=== PATIENT | male | born 1970 | race Caucasian/White ===

== ENCOUNTER 2018-01-04 09:21 | Outpatient (CLI) | payer BC, OTHER ==
[2018-01-04] MEDS ORDERED: Gadobenate Dimeglumine 529 MG/1 ML (20ML VIAL) ONE (11:21)
--- NOTE | 2018-01-04 16:38 | MRI ---
BRAIN MRI WITH AND WITHOUT CONTRAST: 01/04/18 CLINICAL HISTORY: Epilepsy, unspecified, not intractable. No prior imaging comparison. TECHNIQUE: Pre and postcontrast MR imaging of brain performed. FINDINGS: There is a prominent sized region of signal alteration of the left cerebral hemisphere involving the frontal and temporal lobes predominantly cortical/subcortical in distribution. There is associated fuentes sceptibility artifact at the cortex of the anterior pole left temporal lobe. There is no evidence of an acute infarction, No pathologic intra-axial enhancement. There is a mild degree of intrinsic T1 si gnal of the cortex of the left cerebral hemisphere that may relate to component of cortical laminar n ecrosis. Arachnoid cyst is seen at the midline of posterior cranial fossa. There is evidence of prior craniotomy at the right parietal region with associated susceptibility artifact. No midline shift. T here is mild prominence of the ventricular system. Added CSF signal overlying the anterior to mid lef t temporal lobe is present. IMPRESSION: Chronic appearing signal alteration of the left cerebral hemisphere with associated volume loss, susc eptibility artifact and extra-axial CSF density. There is ex vacuo dilatation of ventricular system. Right side craniotomy with associated susceptibility artifact is present. Correlate with surgical his tory. No acute territorial infarction or midline shift. POS: [place]
== END 2018-01-04 09:22 | disposition home or self-care (01) ==
LOC: EEG 09:21
PROVIDERS: ATTEND Psychiatry & Neurology Neurology
DX: G40.909 Epilepsy, unspecified, not intractable, without status epilepticus (principal); Z98.890 Other specified postprocedural states; G93.89 Other specified disorders of brain
CPT/HCPCS: 70553; 95816; A9579

== ENCOUNTER 2024-01-26 09:40 | Outpatient (CLI) | payer OTHER ==
[2024-01-26] MEDS ORDERED: Iopamidol 370 76% 100 ML VIAL ONE (12:04)
== END 2024-01-26 09:41 | disposition home or self-care (01) ==
LOC: CT 09:40
PROVIDERS: ATTEND Internal Medicine Hematology & Oncology
DX: C25.2 Malignant neoplasm of tail of pancreas (principal); C78.7 Secondary malignant neoplasm of liver and intrahepatic bile duct; R91.8 Other nonspecific abnormal finding of lung field; C79.51 Secondary malignant neoplasm of bone; C77.2 Secondary and unspecified malignant neoplasm of intra-abdominal lymph nodes
CPT/HCPCS: 71260; 74177

== ENCOUNTER 2024-04-07 08:22 | Outpatient (CLI) | payer OTHER ==
[2024-04-07] MEDS ORDERED: Iopamidol 370 76% 100 ML VIAL ONE (10:35)
== END 2024-04-07 08:23 | disposition home or self-care (01) ==
LOC: BICCT 08:22
PROVIDERS: ATTEND Internal Medicine Hematology & Oncology
DX: C25.2 Malignant neoplasm of tail of pancreas (principal); C78.7 Secondary malignant neoplasm of liver and intrahepatic bile duct; R91.8 Other nonspecific abnormal finding of lung field; J98.4 Other disorders of lung; K76.9 Liver disease, unspecified; D73.89 Other diseases of spleen; K86.89 Other specified diseases of pancreas; G95.89 Other specified diseases of spinal cord
CPT/HCPCS: 71260; 74177; Q9967

== ENCOUNTER 2024-04-20 12:31 | Outpatient (CLI) | payer OTHER | END 2024-04-20 12:32 | disposition home or self-care (01) | LOC: SCSMRI 12:31 | PROVIDERS: ATTEND Internal Medicine Hematology & Oncology | DX: M54.2 Cervicalgia (principal); M89.8X1 Other specified disorders of bone, shoulder; C25.2 Malignant neoplasm of tail of pancreas; C78.7 Secondary malignant neoplasm of liver and intrahepatic bile duct; M47.814 Spondylosis without myelopathy or radiculopathy, thoracic region; M47.812 Spondylosis without myelopathy or radiculopathy, cervical region | CPT/HCPCS: 72156; 72157 ==

== ENCOUNTER 2024-05-23 11:49 | Day surgery (SDC) | payer OTHER ==
[~2024-05-23 11:49] MED LIST: diphenhydrAMINE 25 MG CAP PO SCH
[2024-05-23] MEDS ORDERED: Acetaminophen 500 MG TAB ONE (13:05)
[2024-05-23] MEDS: Acetaminophen 500 MG TAB PO SCH (13:06)
[2024-05-23 16:03] VITALS: BP 99/60; TEMP 97.5
== END 2024-05-23 16:23 | disposition home or self-care (01) ==
LOC: ONC/OP 11:49
PROVIDERS: ATTEND Internal Medicine Hematology & Oncology
DX: D64.9 Anemia, unspecified (principal); D69.6 Thrombocytopenia, unspecified
CPT/HCPCS: 36430; 86850; 86900; 86901; P9016

== ENCOUNTER 2024-06-01 22:19 | Inpatient (IN) | payer OTHER ==
[~2024-06-01 22:19] MED LIST changes: +Iopamidol-370 76% 500 ML MDV (1 ML CHARGE) ONE; -diphenhydrAMINE 25 MG CAP PO SCH
[2024-06-01] MEDS ORDERED: HYDROmorphone 0.5 MG/0.5 ML SYRINGE ONE (23:10)
[2024-06-01] MEDS ORDERED: Ondansetron PF 4 MG/2 ML Vial ONE (23:10)
[2024-06-01 23:29] LABS: ALT (SGPT) 27 U/L (8-55); AST (SGOT) 30 U/L (5-34); Albumin 2.6 g/dL (3.5-5.0); Alkaline Phosphatase 562 U/L (40-110); Anion Gap 15 mmol/L (10-20); BUN (Urea Nitrogen) 8 mg/dL (8.4-25.7); Bilirubin, Total 1.2 mg/dL (0.2-1.2); Calc. Creatinine Clearance 0 mL/min (70-130); Calcium 8.3 mg/dL (7.8-10.44); Carbon Dioxide 25 mmol/L (22-29); Chloride 103 mmol/L (98-107); Estimated GFR 119; Globulin 3.7 g/dL (2.4-3.5); Glucose 131 mg/dL (70-105); Lipase 12 U/L (8-78); Magnesium 1.9 mg/dL (1.6-2.6); Potassium 3.5 mmol/L (3.5-5.1); Protein, Total 6.3 g/dL (6.0-8.3); Sodium 139 mmol/L (136-145)
[2024-06-01 23:45] LABS: Anisocytosis SLIGHT = 6-15 cells HPF (0-5); Band 17 % (5-11); Elliptocytes SLIGHT = 2-5 cells HPF (0-1); Hypochromia SLIGHT = 6-15 cells HPF (0-5); Lymphocytes 2 % (21-51); Macrocytosis SLIGHT = 6-15 cells HPF (0-5); Monocytes 1 % (0-10); Neutrophil 79 % (42-75); Platelet Adequacy Comment Platelets Decreased; Polychromasia MODERATE = 3-4 cells HPF (0-2); Reactive Lymphocytes 1 % (0-10)
[2024-06-01 23:48] LABS: Hematocrit 23.4 % (42.0-52.0); Hemoglobin 7.6 g/dL (14.0-18.0); Mean Corpuscular HGB CONC 32.5 g/dL (32.0-36.0); Mean Corpuscular Volume 101.7 fL (78.0-98.0); Mean Platelet Volume 12.3 fL (7.4-10.4); Platelet Count 51 10x3/uL (130-400); RBC Distribution Width 21.8 % (11.5-14.5)
[2024-06-02] MEDS ORDERED: Piperacillin/Tazobactam 4.5 GM VIAL ONE (00:28)
[2024-06-02] MEDS ORDERED: Sodium Chloride 0.9% 100 ML ONE (00:28)
[2024-06-02] MEDS ORDERED: HYDROmorphone 0.5 MG/0.5 ML SYRINGE ONE (00:35)
[2024-06-02] MEDS ORDERED: Ondansetron PF 4 MG/2 ML Vial ONE (00:59)
[2024-06-02] MEDS ORDERED: Famotidine/PF 20 mg/2ml Vial ONE (01:56)
[2024-06-02] MEDS ORDERED: Acetaminophen 325 MG TAB PO PRN (02:52)
[2024-06-02] MEDS ORDERED: Senokot S 8.6-50 MG TAB PO PRN (02:52)
[2024-06-02 03:14] VITALS: BMI 28.3
[2024-06-02] MEDS: levETIRAcetam 500 MG (5 mL) VIAL SLOW IVP SCH ×2 (03:24→09:32)
[2024-06-02] MEDS: traMADol HCl 50 MG TAB PO PRN (03:25)
[2024-06-02] MEDS: Sodium Chloride 0.9% 1,000 ML IV SCH (03:30)
[2024-06-02] MEDS: Vancomycin (BATCH) 2 GM in Premix 1 BAG IVPB ONE (03:31)
[2024-06-02] MEDS: Cefepime 2 GM in Sodium Chloride 0.9% 100 ML IVPB SCH (04:41)
[2024-06-02 05:59] LABS: Vancomycin, Random 21.5 ug/mL (See Comment)
[2024-06-02 06:08] LABS: Hematocrit 22.1 % (42.0-52.0); Hemoglobin 6.9 g/dL (14.0-18.0); Mean Corpuscular HGB CONC 31.2 g/dL (32.0-36.0); Mean Corpuscular Hemoglobin 32.4 pg (27.0-31.0); Mean Corpuscular Volume 103.8 fL (78.0-98.0); Mean Platelet Volume 11.8 fL (7.4-10.4); Platelet Count 43 10x3/uL (130-400); RBC Distribution Width 21.7 % (11.5-14.5); Red Blood Cell (RBC) Count 2.13 mill/uL (4.70-6.10)
[2024-06-02 06:23] LABS: ALT (SGPT) 23 U/L (8-55); AST (SGOT) 23 U/L (5-34); Albumin 2.1 g/dL (3.5-5.0); Alkaline Phosphatase 469 U/L (40-110); Anion Gap 12 mmol/L (10-20); BUN (Urea Nitrogen) 8 mg/dL (8.4-25.7); Bilirubin, Total 0.8 mg/dL (0.2-1.2); Calc. Creatinine Clearance 186 mL/min (70-130); Calcium 7.8 mg/dL (7.8-10.44); Carbon Dioxide 21 mmol/L (22-29); Chloride 107 mmol/L (98-107); Estimated GFR 120; Globulin 3.1 g/dL (2.4-3.5); Glucose 127 mg/dL (70-105); Magnesium 1.8 mg/dL (1.6-2.6); Potassium 3.6 mmol/L (3.5-5.1); Protein, Total 5.2 g/dL (6.0-8.3); Sodium 136 mmol/L (136-145)
[2024-06-02] MEDS ORDERED: Morphine 4 MG/ML VIAL SLOW IVP PRN (07:00)
[2024-06-02 07:48] LABS: Anisocytosis SLIGHT = 6-15 cells HPF (0-5); Band 10 % (5-11); Lymphocytes 6 % (21-51); Macrocytosis SLIGHT = 6-15 cells HPF (0-5); Monocytes 2 % (0-10); Myelocyte 1 % (0-0); Neutrophil 81 % (42-75); Platelet Adequacy Comment Platelets Decreased; Polychromasia SLIGHT = 2-3 cells HPF (0-2); Tear Drops SLIGHT = 2-5 cells HPF (0-1); Toxic Granulation SLIGHT
[2024-06-02] MEDS ORDERED: levETIRAcetam 500 MG TAB PO SCH (09:00)
[2024-06-02] MEDS: Potassium Bicarbonate/Cit Ac 20 MEQ TAB PO SCH (09:31)
[2024-06-02] MEDS: Famotidine/PF 20 mg/2ml Vial SLOW IVP SCH (09:32)
[2024-06-02] MEDS: Magnesium 2 GM/50 ML(in water) 2 GM in Premix 1 BAG IVPB SCH (09:32)
[2024-06-02] MEDS: Vancomycin 1 GM in Premix 1 BAG IVPB SCH (09:33)
[2024-06-02 09:56] LABS: Bacteria/HPF None Seen HPF (None Seen); Bilirubin Negative (Negative); Blood, Urine Negative (Negative); CAUTI Indications for Culture Alt mental st,lethar; Clarity Clear (Clear); Glucose, Urine (Dipstick) Normal (Negative); Ketone, Urine Negative (Negative); Leukocyte Negative Leu/uL (Negative); Nitrite Negative (Negative); Protein, Urine (Dipstick) 20 mg/dL (Neg-Trace); RBC/HPF 0-3 HPF (0-3); Squamous Epithelial None Seen HPF (0-3); WBC/HPF 0-3 HPF (0-3)
[2024-06-02 10:03] LABS: Specific Gravity, Urine 1.055 (1.002-1.036)
[2024-06-02 10:04] LABS: Urine Culture Reflex No No
[2024-06-02 11:56] VITALS: BMI 28.3
[2024-06-02] MEDS ORDERED: Morphine 2 MG/ML VIAL SLOW IVP PRN (15:36)
[2024-06-02] MEDS ORDERED: Polyethylene Glycol 3350 17 GM Packet PO PRN (15:38)
[2024-06-02] MEDS ORDERED: Simethicone Chewable 80 MG TAB PO PRN (15:39)
[2024-06-02] MEDS: Morphine 4 MG/ML VIAL SLOW IVP PRN (16:47)
[2024-06-02] MEDS: Gabapentin 300 MG CAP PO SCH ×2 (16:48→20:10)
[2024-06-02] MEDS: Potassium Chloride 20 MEQ TAB PO SCH (16:48)
[2024-06-02] MEDS: Morphine 4 MG/ML VIAL ONE (17:37)
[2024-06-02] MEDS: Multivit, Therapeutic 1 TAB PO SCH (20:09)
[2024-06-02] MEDS: Morphine ER 30 MG TAB PO SCH (20:09)
[2024-06-02] MEDS: Pantoprazole DR 40 MG TAB PO SCH (20:09)
[2024-06-02] MEDS: Cyanocobalamin (Vitamin B-12) 1,000 MCG TAB PO SCH (20:10)
[2024-06-02] MEDS: Senokot S 8.6-50 MG TAB PO SCH (20:10)
[2024-06-02] MEDS: Folic Acid 1 MG TAB PO SCH (20:11)
[2024-06-03 05:02] LABS: #Basophils 0.04 10x3/uL (0.0-0.2); %Basophils 0.3 % (0.0-1.0); %Lymphocytes 8.2 % (21.0-51.0); %Monocytes 9.3 % (0.0-10.0); %Neutrophils 78.8 % (42.0-75.0); Hematocrit 25.3 % (42.0-52.0); Hemoglobin 8.2 g/dL (14.0-18.0); Mean Corpuscular HGB CONC 32.4 g/dL (32.0-36.0); Mean Corpuscular Hemoglobin 32.7 pg (27.0-31.0); Mean Corpuscular Volume 100.8 fL (78.0-98.0); Mean Platelet Volume 11.9 fL (7.4-10.4); Platelet Count 42 10x3/uL (130-400); RBC Distribution Width 21.7 % (11.5-14.5); Red Blood Cell (RBC) Count 2.51 mill/uL (4.70-6.10)
[2024-06-03 05:08] LABS: Anion Gap 10 mmol/L (10-20); BUN (Urea Nitrogen) 6 mg/dL (8.4-25.7); Calc. Creatinine Clearance 170 mL/min (70-130); Calcium 7.4 mg/dL (7.8-10.44); Carbon Dioxide 24 mmol/L (22-29); Chloride 104 mmol/L (98-107); Estimated GFR 117; Glucose 114 mg/dL (70-105); Potassium 3.3 mmol/L (3.5-5.1); Sodium 135 mmol/L (136-145)
[2024-06-03] MEDS: Polyethylene Glycol 3350 17 GM Packet PO SCH (08:44)
[2024-06-03] MEDS: Senokot S 8.6-50 MG TAB PO SCH (08:44)
[2024-06-03] MEDS: levETIRAcetam 500 MG TAB PO SCH ×2 (08:44→12:10)
[2024-06-03] MEDS: Potassium Chloride 20 MEQ TAB PO SCH (12:10)
[2024-06-03] MEDS ORDERED: Milk Of Magnesia 30 ML UDCUP PO PRN (13:27)
[2024-06-03] MEDS: HYDROcodone/Acetaminophen 10/325 mg Tablet PO PRN (14:23)
[2024-06-03] MEDS: Magnesium 2 GM/50 ML(in water) 2 GM in Premix 1 BAG IVPB SCH (14:23)
[2024-06-03] MEDS: traMADol HCl 50 MG TAB PO PRN (16:47)
[2024-06-03] MEDS: Bisacodyl 10 MG SUPP PR SCH (20:29)
[2024-06-04 06:36] LABS: #Basophils Less than 0.03 10x3/uL (0.0-0.2); %Basophils 0.2 % (0.0-1.0); %Eosinophils 2.7 % (0.0-10.0); %Lymphocytes 11.3 % (21.0-51.0); %Monocytes 11.2 % (0.0-10.0); %Neutrophils 73.5 % (42.0-75.0); Hematocrit 24.6 % (42.0-52.0); Mean Corpuscular HGB CONC 32.5 g/dL (32.0-36.0); Mean Corpuscular Hemoglobin 32.5 pg (27.0-31.0); Mean Platelet Volume 10.9 fL (7.4-10.4); Platelet Count 51 10x3/uL (130-400); RBC Distribution Width 21.4 % (11.5-14.5); Red Blood Cell (RBC) Count 2.46 mill/uL (4.70-6.10)
[2024-06-04 06:59] LABS: ALT (SGPT) 31 U/L (8-55); AST (SGOT) 36 U/L (5-34); Albumin 2.3 g/dL (3.5-5.0); Alkaline Phosphatase 620 U/L (40-110); Anion Gap 12 mmol/L (10-20); BUN (Urea Nitrogen) 8 mg/dL (8.4-25.7); Bilirubin, Total 1.1 mg/dL (0.2-1.2); Calc. Creatinine Clearance 193 mL/min (70-130); Carbon Dioxide 25 mmol/L (22-29); Chloride 100 mmol/L (98-107); Estimated GFR 121; Globulin 3.4 g/dL (2.4-3.5); Glucose 99 mg/dL (70-105); Potassium 3.8 mmol/L (3.5-5.1); Protein, Total 5.7 g/dL (6.0-8.3); Sodium 133 mmol/L (136-145)
[2024-06-04] MEDS: Bisacodyl 5 MG TAB PO SCH (12:54)
[2024-06-04] MEDS: Calcium Carbonate 500 MG ChewTAB PO PRN (22:46)
[2024-06-04] MEDS: Ondansetron PF 4 MG/2 ML Vial IVP PRN (22:46)
[2024-06-05 06:35] LABS: #Basophils 0.04 10x3/uL (0.0-0.2); %Basophils 0.2 % (0.0-1.0); %Eosinophils 0.6 % (0.0-10.0); %Monocytes 6.2 % (0.0-10.0); Hematocrit 25.6 % (42.0-52.0); Hemoglobin 8.3 g/dL (14.0-18.0); Mean Corpuscular HGB CONC 32.4 g/dL (32.0-36.0); Mean Corpuscular Hemoglobin 32.2 pg (27.0-31.0); Mean Corpuscular Volume 99.2 fL (78.0-98.0); Mean Platelet Volume 10.6 fL (7.4-10.4); Platelet Count 65 10x3/uL (130-400); RBC Distribution Width 20.5 % (11.5-14.5); Red Blood Cell (RBC) Count 2.58 mill/uL (4.70-6.10)
[2024-06-05 06:46] LABS: Vancomycin, Random 6.1 ug/mL (See Comment)
[2024-06-05 06:47] LABS: ALT (SGPT) 30 U/L (8-55); AST (SGOT) 33 U/L (5-34); Albumin 2.4 g/dL (3.5-5.0); Alkaline Phosphatase 675 U/L (40-110); Anion Gap 14 mmol/L (10-20); BUN (Urea Nitrogen) 8 mg/dL (8.4-25.7); Bilirubin, Total 1.4 mg/dL (0.2-1.2); Calc. Creatinine Clearance 196 mL/min (70-130); Calcium 8.1 mg/dL (7.8-10.44); Carbon Dioxide 24 mmol/L (22-29); Chloride 96 mmol/L (98-107); Estimated GFR 122; Globulin 3.6 g/dL (2.4-3.5); Glucose 117 mg/dL (70-105); Magnesium 1.9 mg/dL (1.6-2.6); Potassium 3.7 mmol/L (3.5-5.1); Sodium 130 mmol/L (136-145)
[2024-06-05] MEDS ORDERED: Vancomycin 1 GM in Premix 1 BAG IVPB SCH (10:00)
[2024-06-05] MEDS ORDERED: Vancomycin HCl 750 MG in Sodium Chloride 0.9% 250 ML 250 ML IVPB SCH (10:00)
[2024-06-05] MEDS ORDERED: Phenol 177 ML BOT PO PRN (10:27)
[2024-06-05] MEDS: HYDROcodone/Acetaminophen 10/325 mg Tablet PO PRN (11:13)
[2024-06-05] MEDS: Benzocaine/Menthol 1 LOZ LOZ PO PRN (11:14)
[2024-06-05 15:28] VITALS: BP 118/78; TEMP 98.2
== END 2024-06-05 17:59 | disposition home or self-care (01) | DRG 436 ==
LOC: ERS 22:19 → OBSVTOIN 06-02 01:43 → SURG A 06-02 01:43
PROVIDERS: ADMIT Internal Medicine; ATTEND Family Medicine
DX: C25.9 Malignant neoplasm of pancreas, unspecified (principal); C78.7 Secondary malignant neoplasm of liver and intrahepatic bile duct; C78.89 Secondary malignant neoplasm of other digestive organs; G89.4 Chronic pain syndrome; D64.81 Anemia due to antineoplastic chemotherapy; T45.1X5A Adverse effect of antineoplastic and immunosuppressive drugs, initial encounter; D69.59 Other secondary thrombocytopenia; G40.909 Epilepsy, unspecified, not intractable, without status epilepticus; D72.829 Elevated white blood cell count, unspecified; Z92.21 Personal history of antineoplastic chemotherapy; K59.03 Drug induced constipation; E87.6 Hypokalemia; E83.42 Hypomagnesemia; Z79.899 Other long term (current) drug therapy
CPT/HCPCS: 36415; 36430; 71260; 74177; 80048; 80053; 80202; 81001; 82274; 83605; 83690; 83735; 84145; 85025; 85046; 86301; 86850; 86900; 86901; 87040; 87081; 93005; 94760; 96365; 96375; 96376; J0692; J1642; J1953; J2272; J2405; J2543; J3370; J3475; J3490; J7030; P9016; Q9967

== ENCOUNTER 2024-06-08 11:30 | Day surgery (SDC) | payer OTHER ==
[2024-06-08] MEDS ORDERED: diphenhydrAMINE 25 MG CAP PO SCH (11:45)
[2024-06-08] MEDS: Acetaminophen 500 MG TAB PO SCH (12:05)
[2024-06-08 15:38] VITALS: BP 124/82; TEMP 97.7
[2024-06-08 16:07] LABS: #Basophils 0.03 10x3/uL (0.0-0.2); #Eosinophils Less than 0.03 10x3/uL (0.0-0.7); %Basophils 0.2 % (0.0-1.0); %Eosinophils 0.1 % (0.0-10.0); %Lymphocytes 2.9 % (21.0-51.0); %Monocytes 1.4 % (0.0-10.0); %Neutrophils 94.5 % (42.0-75.0); Hematocrit 27.2 % (42.0-52.0); Hemoglobin 8.7 g/dL (14.0-18.0); Mean Corpuscular Hemoglobin 31.9 pg (27.0-31.0); Mean Corpuscular Volume 99.6 fL (78.0-98.0); Mean Platelet Volume 10.8 fL (7.4-10.4); Platelet Count 81 10x3/uL (130-400); RBC Distribution Width 23.1 % (11.5-14.5); Red Blood Cell (RBC) Count 2.73 mill/uL (4.70-6.10)
== END 2024-06-08 16:19 | disposition home or self-care (01) ==
LOC: ONC/OP 11:30
PROVIDERS: ATTEND Internal Medicine Hematology & Oncology
DX: D64.9 Anemia, unspecified (principal); D69.6 Thrombocytopenia, unspecified
CPT/HCPCS: 36430; 36591; 85025; 86850; 86900; 86901; J1642; P9016; P9035

== ENCOUNTER 2024-06-12 15:05 | Inpatient (IN) | payer OTHER ==
[2024-06-12 15:58] VITALS: BMI 23.6
[2024-06-12] MEDS ORDERED: Morphine 4 MG/ML VIAL SLOW IVP PRN (16:46)
[2024-06-12] MEDS ORDERED: Lorazepam 2 MG/ML VIAL SLOW IVP PRN (18:06)
[2024-06-12] MEDS ORDERED: Acetaminophen 325 MG TAB PO PRN (18:06)
[2024-06-12 18:33] LABS: #Basophils Less than 0.03 10x3/uL (0.0-0.2); #Eosinophils Less than 0.03 10x3/uL (0.0-0.7); %Basophils 0.1 % (0.0-1.0); %Eosinophils 0.1 % (0.0-10.0); %Lymphocytes 5.6 % (21.0-51.0); %Monocytes 2.9 % (0.0-10.0); %Neutrophils 90.6 % (42.0-75.0); Hematocrit 19.8 % (42.0-52.0); Hemoglobin 6.3 g/dL (14.0-18.0); Mean Corpuscular HGB CONC 31.8 g/dL (32.0-36.0); Mean Corpuscular Hemoglobin 32.5 pg (27.0-31.0); Mean Corpuscular Volume 102.1 fL (78.0-98.0); Mean Platelet Volume 11.2 fL (7.4-10.4); Platelet Count 80 10x3/uL (130-400); RBC Distribution Width 25.7 % (11.5-14.5); Red Blood Cell (RBC) Count 1.94 mill/uL (4.70-6.10)
[2024-06-12 18:42] LABS: ALT (SGPT) 91 U/L (8-55); AST (SGOT) 70 U/L (5-34); Albumin 2.1 g/dL (3.5-5.0); Alkaline Phosphatase 1295 U/L (40-110); Anion Gap 14 mmol/L (10-20); BUN (Urea Nitrogen) 26 mg/dL (8.4-25.7); Bilirubin, Total 5.5 mg/dL (0.2-1.2); Calc. Creatinine Clearance 156 mL/min (70-130); Calcium 7.4 mg/dL (7.8-10.44); Carbon Dioxide 23 mmol/L (22-29); Chloride 99 mmol/L (98-107); Estimated GFR 118; Globulin 3.6 g/dL (2.4-3.5); Glucose 126 mg/dL (70-105); Magnesium 2.3 mg/dL (1.6-2.6); Potassium 4.3 mmol/L (3.5-5.1); Protein, Total 5.7 g/dL (6.0-8.3); Sodium 132 mmol/L (136-145)
[2024-06-12 18:56] LABS: Anisocytosis MODERATE=16-30 cells HPF (0-5); Hypochromia SLIGHT = 6-15 cells HPF (0-5); Macrocytosis SLIGHT = 6-15 cells HPF (0-5); Platelet Adequacy Comment Platelets Decreased; Polychromasia MODERATE = 3-4 cells HPF (0-2); Schistocytes SLIGHT = 2-5 cells HPF (0-1)
[2024-06-12] MEDS: Pantoprazole 40 MG VIAL IVP SCH (19:08)
[2024-06-12] MEDS: Morphine 4 MG/ML VIAL SLOW IVP PRN (19:08)
[2024-06-12] MEDS: Ondansetron PF 4 MG/2 ML Vial IVP PRN (19:08)
[2024-06-12] MEDS ORDERED: chlorproMAZINE HCl 25 MG TAB PO PRN (19:14)
[2024-06-12] MEDS: Sodium Chloride 0.9% 1,000 ML IV SCH (20:44)
[2024-06-12] MEDS: Morphine ER 30 MG TAB PO SCH (21:43)
[2024-06-12] MEDS: Gabapentin 300 MG CAP PO SCH (21:43)
[2024-06-12] MEDS: levETIRAcetam 500 MG (5 mL) VIAL SLOW IVP SCH (21:44)
[2024-06-13] MEDS: Pantoprazole 80 MG, Admixture Fee 1 EACH in Sodium Chloride 0.9% 100 ML IVPB SCH (00:47)
[2024-06-13 01:48] LABS: Hematocrit 22.3 % (42.0-52.0); Hemoglobin 7.3 g/dL (14.0-18.0)
[2024-06-13 05:44] LABS: Anion Gap 17 mmol/L (10-20); BUN (Urea Nitrogen) 26 mg/dL (8.4-25.7); Calc. Creatinine Clearance 161 mL/min (70-130); Calcium 7.8 mg/dL (7.8-10.44); Carbon Dioxide 22 mmol/L (22-29); Chloride 100 mmol/L (98-107); Estimated GFR 119; Glucose 112 mg/dL (70-105); Potassium 3.8 mmol/L (3.5-5.1); Sodium 135 mmol/L (136-145)
[2024-06-13 06:17] LABS: #Basophils Less than 0.03 10x3/uL (0.0-0.2); #Eosinophils Less than 0.03 10x3/uL (0.0-0.7); %Basophils 0.1 % (0.0-1.0); %Eosinophils 0.1 % (0.0-10.0); %Lymphocytes 6.6 % (21.0-51.0); %Monocytes 8.8 % (0.0-10.0); %Neutrophils 83.7 % (42.0-75.0); Hematocrit 21.3 % (42.0-52.0); Hemoglobin 6.9 g/dL (14.0-18.0); Mean Corpuscular HGB CONC 32.4 g/dL (32.0-36.0); Mean Corpuscular Hemoglobin 31.5 pg (27.0-31.0); Mean Corpuscular Volume 97.3 fL (78.0-98.0); Mean Platelet Volume 10.5 fL (7.4-10.4); Platelet Count 78 10x3/uL (130-400); RBC Distribution Width 25.9 % (11.5-14.5); Red Blood Cell (RBC) Count 2.19 mill/uL (4.70-6.10)
[2024-06-13] MEDS ORDERED: Pantoprazole 40 MG VIAL IVP SCH (09:00)
[2024-06-13] MEDS ORDERED: fentaNYL PF 100 MCG/2 ML SYRINGE ONE (09:02)
[2024-06-13] MEDS ORDERED: Midazolam HCl 2 mg/2 ml Vial ONE (09:02)
[2024-06-13] MEDS ORDERED: Ondansetron PF 4 MG/2 ML Vial ONE (09:32)
[2024-06-13] MEDS ORDERED: Dexamethasone 20 MG/5 ML VIAL ONE (09:32)
[2024-06-13] MEDS ORDERED: Esmolol 100 MG/10 ML VIAL ONE (09:32)
[2024-06-13] MEDS ORDERED: SUCCINYLCHOLINE/SOD CL,ISO/PF 200 MG/10 ML SYRINGE FS ONE (09:32)
[2024-06-13] MEDS: levETIRAcetam 500 MG (5 mL) VIAL SLOW IVP SCH (12:42)
[2024-06-13 21:56] LABS: Hematocrit 29.1 % (42.0-52.0); Hemoglobin 9.7 g/dL (14.0-18.0)
[2024-06-14 05:11] LABS: #Basophils Less than 0.03 10x3/uL (0.0-0.2); %Basophils 0.1 % (0.0-1.0); %Lymphocytes 9.9 % (21.0-51.0); %Monocytes 8.7 % (0.0-10.0); %Neutrophils 78.7 % (42.0-75.0); Hematocrit 23.5 % (42.0-52.0); Hemoglobin 7.5 g/dL (14.0-18.0); Mean Corpuscular HGB CONC 31.9 g/dL (32.0-36.0); Mean Corpuscular Hemoglobin 30.7 pg (27.0-31.0); Mean Corpuscular Volume 96.3 fL (78.0-98.0); Mean Platelet Volume 10.9 fL (7.4-10.4); Platelet Count 53 10x3/uL (130-400); RBC Distribution Width 25.9 % (11.5-14.5); Red Blood Cell (RBC) Count 2.44 mill/uL (4.70-6.10)
[2024-06-14 06:52] LABS: ALT (SGPT) 84 U/L (8-55); AST (SGOT) 73 U/L (5-34); Albumin 1.7 g/dL (3.5-5.0); Alkaline Phosphatase 1323 U/L (40-110); Anion Gap 14 mmol/L (10-20); BUN (Urea Nitrogen) 21 mg/dL (8.4-25.7); Bilirubin, Total 7.6 mg/dL (0.2-1.2); Calc. Creatinine Clearance 158 mL/min (70-130); Carbon Dioxide 19 mmol/L (22-29); Chloride 109 mmol/L (98-107); Estimated GFR 119; Globulin 3.1 g/dL (2.4-3.5); Glucose 85 mg/dL (70-105); Potassium 3.2 mmol/L (3.5-5.1); Protein, Total 4.8 g/dL (6.0-8.3); Sodium 139 mmol/L (136-145)
[2024-06-14] MEDS: Naloxegol 12.5 MG TAB PER TUBE SCH (08:18)
[2024-06-14] MEDS ORDERED: Potassium Chloride 20 MEQ TAB PO SCH (09:00)
[2024-06-14] MEDS: Potassium Chloride 20 MEQ in Premix 1 BAG IVPB SCH (12:27)
[2024-06-14] MEDS: Acetaminophen 500 MG TAB PO SCH (12:36)
[2024-06-15 05:34] LABS: ALT (SGPT) 93 U/L (8-55); AST (SGOT) 81 U/L (5-34); Albumin 1.8 g/dL (3.5-5.0); Alkaline Phosphatase 1447 U/L (40-110); Anion Gap 17 mmol/L (10-20); BUN (Urea Nitrogen) 17 mg/dL (8.4-25.7); Bilirubin, Total 8.9 mg/dL (0.2-1.2); Calc. Creatinine Clearance 187 mL/min (70-130); Calcium 7.8 mg/dL (7.8-10.44); Carbon Dioxide 18 mmol/L (22-29); Chloride 112 mmol/L (98-107); Estimated GFR 123; Globulin 3.6 g/dL (2.4-3.5); Glucose 80 mg/dL (70-105); Potassium 3.9 mmol/L (3.5-5.1); Protein, Total 5.4 g/dL (6.0-8.3); Sodium 143 mmol/L (136-145)
[2024-06-15 05:35] LABS: #Basophils Less than 0.03 10x3/uL (0.0-0.2); %Basophils 0.1 % (0.0-1.0); %Eosinophils 1.9 % (0.0-10.0); %Lymphocytes 9.3 % (21.0-51.0); %Monocytes 8.4 % (0.0-10.0); %Neutrophils 79.9 % (42.0-75.0); Hematocrit 25.8 % (42.0-52.0); Hemoglobin 8.3 g/dL (14.0-18.0); Mean Corpuscular HGB CONC 32.2 g/dL (32.0-36.0); Mean Corpuscular Volume 96.3 fL (78.0-98.0); Mean Platelet Volume 10.8 fL (7.4-10.4); Platelet Count 47 10x3/uL (130-400); RBC Distribution Width 27.1 % (11.5-14.5); Red Blood Cell (RBC) Count 2.68 mill/uL (4.70-6.10)
[2024-06-15 11:34] VITALS: BP 104/68
[2024-06-15] MEDS ORDERED: Etomidate 40 MG (20 mL) VIAL ONE (14:25)
[2024-06-15] MEDS ORDERED: fentaNYL 50 mcg/mL 1 mL Vial ONE ×3 (14:28→15:31)
[2024-06-15] MEDS ORDERED: PROPOFOL 20 ML ONE (14:36)
[2024-06-15] MEDS ORDERED: Bupivacaine 0.25% HCL 30 ML VIAL ONE (14:36)
[2024-06-15] MEDS ORDERED: EPINEPHrine 1 MG/ML VIAL ONE (14:36)
[2024-06-15] MEDS ORDERED: CEFAZOLIN 2 GM VIAL ONE (14:48)
[2024-06-15] MEDS ORDERED: Rocuronium Bromide 10 MG/ML (10ML VIAL) ONE (15:10)
[2024-06-15] MEDS ORDERED: PHENYLEPHRINE-NS 100 MCG/ML 10 ML SYRINGE ONE (16:58)
[2024-06-15] MEDS ORDERED: SUGAMMADEX SODIUM 200 MG/2 ML VIAL ONE (17:38)
[2024-06-15] MEDS ORDERED: Morphine Sulfate 2 MG/ML SYRINGE SLOW IVP PRN (17:56)
[2024-06-15] MEDS ORDERED: PACU-Morphine 4MG/ML VIAL SLOW IVP PRN (17:56)
[2024-06-15] MEDS ORDERED: Ondansetron HCl/PF 4 MG/2 ML Vial IVP PRN (17:56)
[2024-06-15] MEDS ORDERED: Albumin 5% 500 ML ONE (18:17)
[2024-06-15] MEDS ORDERED: Pantoprazole 40 MG VIAL IVP SCH (21:00)
[2024-06-15 21:32] LABS: #Basophils Less than 0.03 10x3/uL (0.0-0.2); %Basophils 0.1 % (0.0-1.0); %Eosinophils 0.9 % (0.0-10.0); %Lymphocytes 9.5 % (21.0-51.0); %Neutrophils 80.8 % (42.0-75.0); Hematocrit 18.8 % (42.0-52.0); Hemoglobin 5.9 g/dL (14.0-18.0); Mean Corpuscular HGB CONC 31.4 g/dL (32.0-36.0); Mean Corpuscular Hemoglobin 31.1 pg (27.0-31.0); Mean Corpuscular Volume 98.9 fL (78.0-98.0); Mean Platelet Volume 10.8 fL (7.4-10.4); Platelet Count 86 10x3/uL (130-400); RBC Distribution Width 25.1 % (11.5-14.5)
[2024-06-15] MEDS ORDERED: NOREPINEPHRINE 8 MG/250 ML-D5W 250 ML IVPB SCH (22:00)
[2024-06-15] MEDS: Sodium Chloride 0.9% 1,000 ML IV SCH (22:10)
[2024-06-15] MEDS: Pantoprazole 40 MG VIAL IVP SCH (22:52)
[2024-06-16 00:50] LABS: Hematocrit 24.1 % (42.0-52.0); Hemoglobin 8.1 g/dL (14.0-18.0); Mean Corpuscular HGB CONC 33.6 g/dL (32.0-36.0); Mean Corpuscular Hemoglobin 31.6 pg (27.0-31.0); Mean Corpuscular Volume 94.1 fL (78.0-98.0); Mean Platelet Volume 10.2 fL (7.4-10.4); Platelet Count 67 10x3/uL (130-400); RBC Distribution Width 20.6 % (11.5-14.5); Red Blood Cell (RBC) Count 2.56 mill/uL (4.70-6.10)
[2024-06-16 00:51] LABS: Lactic Acid 1.26 mmol/L (0.5-2.2)
[2024-06-16 00:53] LABS: Anion Gap 14 mmol/L (10-20); BUN (Urea Nitrogen) 19 mg/dL (8.4-25.7); Calc. Creatinine Clearance 176 mL/min (70-130); Calcium 7.1 mg/dL (7.8-10.44); Carbon Dioxide 18 mmol/L (22-29); Chloride 116 mmol/L (98-107); Estimated GFR 121; Glucose 95 mg/dL (70-105); Potassium 3.4 mmol/L (3.5-5.1); Sodium 145 mmol/L (136-145)
[2024-06-16 00:57] LABS: INR-International Normal Ratio 4.8; Prothrombin Time 45.6 sec (12.0-14.7)
[2024-06-16 00:58] LABS: PTT 49.6 sec (22.9-36.1)
[2024-06-16] MEDS: cefOXitin 2 GM in Sodium Chloride 0.9% 100 ML IVPB SCH (01:25)
[2024-06-16 06:20] LABS: Hematocrit 25.8 % (42.0-52.0); Hemoglobin 8.6 g/dL (14.0-18.0); Mean Corpuscular HGB CONC 33.3 g/dL (32.0-36.0); Mean Corpuscular Hemoglobin 31.4 pg (27.0-31.0); Mean Corpuscular Volume 94.2 fL (78.0-98.0); Mean Platelet Volume 10.8 fL (7.4-10.4); Platelet Count 67 10x3/uL (130-400); RBC Distribution Width 21.6 % (11.5-14.5); Red Blood Cell (RBC) Count 2.74 mill/uL (4.70-6.10)
[2024-06-16] MEDS: Morphine 4 MG/ML VIAL SLOW IVP PRN (09:39)
[2024-06-16] MEDS: Potassium Chloride 20 MEQ in Premix 1 BAG IVPB SCH (09:39)
[2024-06-16] MEDS: fentaNYL 75 mcg/hour Patch TD SCH ×2 (09:50→10:05)
[2024-06-16 12:01] VITALS: BMI 24.9
[2024-06-16 12:21] LABS: Hematocrit 24.2 % (42.0-52.0); Hemoglobin 8.1 g/dL (14.0-18.0); Mean Corpuscular HGB CONC 33.5 g/dL (32.0-36.0); Mean Corpuscular Volume 95.7 fL (78.0-98.0); Mean Platelet Volume 10.6 fL (7.4-10.4); Platelet Count 60 10x3/uL (130-400); Red Blood Cell (RBC) Count 2.53 mill/uL (4.70-6.10)
[2024-06-17 08:14] VITALS: TEMP 97.6
[2024-06-19] MEDS ORDERED: fentaNYL 75 mcg/hour Patch TD SCH (10:00)
== END 2024-06-17 09:32 | disposition hospice, home (50) | DRG 326 ==
LOC: MSONC 15:05 → OBSVTOIN 16:44 → CCU 06-15 20:05
PROVIDERS: ADMIT Internal Medicine; ATTEND Hospitalist
PROC: 0D968ZZ Drainage of Stomach, Via Natural or Artificial Opening Endoscopic (ICD-10-PCS; 2024-06-13)
PROC: 0DB98ZX Excision of Duodenum, Via Natural or Artificial Opening Endoscopic, Diagnostic (ICD-10-PCS; 2024-06-13)
PROC: 30233K1 Transfusion of Nonautologous Frozen Plasma into Peripheral Vein, Percutaneous Approach (ICD-10-PCS; 2024-06-13)
PROC: 30233N1 Transfusion of Nonautologous Red Blood Cells into Peripheral Vein, Percutaneous Approach (ICD-10-PCS; 2024-06-13)
PROC: 6A551Z2 Pheresis of Platelets, Multiple (ICD-10-PCS; 2024-06-13)
PROC: 0DHA4UZ Insertion of Feeding Device into Jejunum, Percutaneous Endoscopic Approach (ICD-10-PCS; principal; 2024-06-15)
DX: K31.1 Adult hypertrophic pyloric stenosis (principal); K21.01 Gastro-esophageal reflux disease with esophagitis, with bleeding; C25.9 Malignant neoplasm of pancreas, unspecified; D62 Acute posthemorrhagic anemia; K31.5 Obstruction of duodenum; G40.909 Epilepsy, unspecified, not intractable, without status epilepticus; Z51.5 Encounter for palliative care; Z66 Do not resuscitate; G89.3 Neoplasm related pain (acute) (chronic); D69.6 Thrombocytopenia, unspecified; D63.8 Anemia in other chronic diseases classified elsewhere; Z92.21 Personal history of antineoplastic chemotherapy; Z79.899 Other long term (current) drug therapy
CPT/HCPCS: 36415; 36430; 74018; 80048; 80053; 82248; 83605; 83615; 83735; 84100; 84550; 85025; 85027; 85610; 85730; 86850; 86900; 86901; 88305; 88341; 88342; B4087; J0171; J0665; J0694; J1100; J1953; J2250; J2272; J2405; J2470; J2704; J3010; J3480; J7030; P9016; P9035; P9045; P9059